=== PATIENT | female | born 1975 | race Caucasian/White ===

== ENCOUNTER 2016-11-08 04:51 | Inpatient (IN) | payer OTHER, MEDICAID, MEDICARE ==
[~2016-11-08] VITALS: Ht 162.6 cm; Wt 110.0 kg
[2016-11-08] VITALS (9 sets, daily range): BP systolic 117–174; BP diastolic 64–87; PULSE 77–137; RESP 16–20; TEMP 97.1–98.3; O2SAT 96–98
[~2016-11-08 04:51] MED LIST: ALBU0.086 INH; ALBU1.25 NEB; ALBU17I INH; ALBU8I INH; BUSP10TA8 PO; CETI10 PO; DUONI NEB
--- NOTE | 2016-11-08 05:14 | PD ---
HPI . Psychosis Chief Complaint: Psychiatric problem Time Seen by Provider: 05:04 Travel History International Travel<30 days: No Contact w/Intl Traveler<30days: No History of Present Illness HPI This patient is brought in by police under a [place] Act. This patient is acutely psychotic and is unable to give us any meaningful history. Her papers state that the devil is coming to kill her. She believes that today is Monday the that Richard is coming to kill her. The papers further states that her uncle brought her here 30 years ago and buried her in the backyard. PFSH Past Medical History Asthma: Yes Bipolar Disorder: Yes Depression: Yes Diminished Hearing: No Respiratory: Yes (ASTHMA) : 1 Para: 1 Tubal Ligation: Yes Social History Alcohol Use: Yes (occ) Tobacco Use: Yes (1 ppd) Substance Use: No Allergies-Medications (Allergen,Severity, Reaction): Coded Allergies: fexofenadine (Unverified Allergy, Mild, VOMITING, 11/08/16) Reported Meds & Prescriptions Reported Meds & Active Scripts Active Active Prescriptions or Reported Medications Unobtainable Review of Systems ROS Limitations: Psychotic Physical Exam Narrative GENERAL: Awake and alert. SKIN: Warm and dry with no rash or lesions. HEAD: Normocephalic/atraumatic. EYES: Pupils are equal. Extraocular movements are intact. NECK: Full range of motion with no apparent pain. CARDIOVASCULAR: Regular rhythm. RESPIRATORY: Nonlabored respirations. MUSCULOSKELETAL: Atraumatic. NEUROLOGICAL: Nonfocal. PSYCHIATRIC: This patient is very boisterous. She has flight of ideas. She is delusional. She appears to be responding to internal stimuli. Data Data Last Documented VS Vital Signs Date Time Temp Pulse Resp B/P (MAP) Pulse Ox O2 Delivery O2 Flow Rate FiO2 11/08/16 06:52 85 20 96 Room Air 11/08/16 05:04 97.3 174/87 (116) Orders Orders Olanzapine Inj (Zyprexa Inj) (11/08/16 05:15) Diphenhydramine Inj (Benadryl Inj) (11/08/16 05:15) Lorazepam Inj (Ativan Inj) (11/08/16 05:15) Complete Blood Count With Diff (11/08/16 05:14) Comprehensive Metabolic Panel (11/08/16 05:14) Psych Screen (11/08/16 05:14) Drug Screen, Random Urine (11/08/16 05:14) Alcohol (Ethanol) (11/08/16 05:14) Urinalysis - C+S If Indicated (11/08/16 06:22) Lactic Acid (11/08/16 06:22) Chest, Pa & Lat (11/08/16 ) Ct Brain W/O Iv Contrast(Rout) (11/08/16 06:22) Labs Laboratory Tests Test 11/08/16 05:22 11/08/16 06:35 White Blood Count 19.8 TH/MM3 Red Blood Count 4.58 MIL/MM3 Hemoglobin 13.6 GM/DL Hematocrit 40.0 % Mean Corpuscular Volume 87.4 FL Mean Corpuscular Hemoglobin 29.6 PG Mean Corpuscular Hemoglobin Concent 33.8 % Red Cell Distribution Width 12.8 % Platelet Count 435 TH/MM3 Mean Platelet Volume 7.8 FL Neutrophils (%) (Auto) 58.1 % Lymphocytes (%) (Auto) 27.6 % Monocytes (%) (Auto) 8.5 % Eosinophils (%) (Auto) 5.3 % Basophils (%) (Auto) 0.5 % Neutrophils # (Auto) 11.5 TH/MM3 Lymphocytes # (Auto) 5.5 TH/MM3 Monocytes # (Auto) 1.7 TH/MM3 Eosinophils # (Auto) 1.1 TH/MM3 Basophils # (Auto) 0.1 TH/MM3 CBC Comment AUTO DIFF Differential Total Cells Counted 100 Neutrophils % (Manual) 59 % Band Neutrophils % 2 % Lymphocytes % 19 % Monocytes % 9 % Eosinophils % 11 % Neutrophils # (Manual) 12.1 TH/MM3 Differential Comment FINAL DIFF MANUAL Platelet Estimate HIGH Platelet Morphology Comment NORMAL Red Cell Morphology Comment NORMAL Blood Urea Nitrogen 12 MG/DL Creatinine 1.00 MG/DL Random Glucose 162 MG/DL Total Protein 8.2 GM/DL Albumin 4.0 GM/DL Calcium Level 8.5 MG/DL Alkaline Phosphatase 131 U/L Aspartate Amino Transf (AST/SGOT) 14 U/L Alanine Aminotransferase (ALT/SGPT) 18 U/L Total Bilirubin 0.2 MG/DL Sodium Level 139 MEQ/L Potassium Level 3.1 MEQ/L Chloride Level 107 MEQ/L Carbon Dioxide Level 21.0 MEQ/L Anion Gap 11 MEQ/L Estimat Glomerular Filtration Rate 61 ML/MIN Ethyl Alcohol Level LESS THAN 3 MG/DL MDM Medical Decision Making Medical Screen Exam Complete: Yes Emergency Medical Condition: Yes Medical Record Reviewed: Yes (this patient has never been seen here for psychiatric issues.) Differential Diagnosis Differential diagnosis of psychosis includes but is not limited to schizophrenia , schizoaffective disorder, bipolar disorder, intoxication, substance abuse, dementia Narrative Course This patient presents acutely psychotic. CBC & BMP Diagram 11/08/16 05:22 Total Protein 8.2, Albumin 4.0, Calcium Level 8.5, Alkaline Phosphatase 131 H, Aspartate Amino Transf (AST/SGOT) 14 L, Alanine Aminotransferase (ALT/SGPT) 18, Total Bilirubin 0.2 Because of the elevated white blood count, further studies have been ordered. Her care is being turned over to the oncoming provider pending the results of the studies. Diagnosis Primary Impression: Acute psychosis Additional Impression: Leukocytosis Qualified Codes: D72.829 - Elevated white blood cell count, unspecified Scripts Unable to Obtain Active Prescriptions or Reported Meds Wanda Jones MD Nov 08, 2016 05:14
[2016-11-08] MEDS ORDERED: LORazepam 2 MG/ML VIAL IM ONE (05:15)
[2016-11-08] MEDS ORDERED: diphenhydrAMINE HCL 50 MG/ML VIAL IM ONE (05:15)
[2016-11-08] MEDS ORDERED: OLANZapine IM 10 MG VIAL IM ONE (05:15)
[2016-11-08 05:34] LABS: AUTOMATED NEUTROPHIL # 11.5 TH/MM3 (1.8-7.7); BASOPHIL # 0.1 TH/MM3 (0-0.2); BASOPHIL % 0.5 % (0.0-2.0); EOSINOPHIL # 1.1 TH/MM3 (0-0.4); EOSINOPHIL % 5.3 % (0.0-4.0); LYMPH % 27.6 % (9.0-44.0); LYMPHOCYTE # 5.5 TH/MM3 (1.0-4.8); MEAN CELL VOLUME 87.4 FL (80.0-100.0); MEAN CORPUSCULAR HEMOGLOBIN 29.6 PG (27.0-34.0); MEAN CORPUSCULAR HGB CONC 33.8 % (32.0-36.0); MONO % 8.5 % (0.0-8.0); NEUT % 58.1 % (16.0-70.0); PLATELET COUNT 435 TH/MM3 (150-450); RED BLOOD COUNT 4.58 MIL/MM3 (4.00-5.30); RED CELL DISTRIBUTION WIDTH 12.8 % (11.6-17.2); WHITE BLOOD COUNT 19.8 TH/MM3 (4.0-11.0)
[2016-11-08 05:42] LABS: HEMO FLAGS AUTO DIFF
[2016-11-08 06:04] LABS: ALT (GPT) 18 U/L (10-53); ANION GAP 11 MEQ/L (5-15); AST (GOT) 14 U/L (15-37); BLOOD UREA NITROGEN 12 MG/DL (7-18); CHLORIDE 107 MEQ/L (98-107); GLOMERULAR FILTRATION RATE 61 ML/MIN (>89); POTASSIUM 3.1 MEQ/L (3.5-5.1); SODIUM (NA) 139 MEQ/L (136-145)
[2016-11-08 06:05] LABS: ALCOHOL LESS THAN 3 MG/DL (0-5); ALKALINE PHOSPHATASE 131 U/L (45-117); TOTAL BILIRUBIN ADULT 0.2 MG/DL (0.2-1.0)
[2016-11-08 06:13] LABS: BANDS 2 % (0-6); EOSINOPHILS 11 % (0-4); NEUTROPHIL # MANUAL DIFF 12.1 TH/MM3 (1.8-7.7); POLYS (SEG NEUTROPHILS) 59 % (16-70); WBC DIFF SAMPLE 100
[2016-11-08 06:14] LABS: PLATELET ESTIMATE SMEAR HIGH (NORMAL); PLATELET MORPHOLOGY NORMAL (NORMAL); SCAN/DIFF FINAL DIFF MANUAL
--- NOTE | 2016-11-08 06:56 | RADRPT ---
EXAM DATE/TIME: 11/08/2016 06:38 [facility] COMPARISON: No previous studies available for comparison. INDICATIONS : Fever. MEDICAL HISTORY : None. SURGICAL HISTORY : None. ENCOUNTER: Initial ACUITY: 1 day PAIN SCORE: 0/10 LOCATION: Bilateral chest FINDINGS: Mild haziness seen of the right upper lobe suggesting early or mild pneumonia in the proper clinical setting. Lungs otherwise appear reasonably clear. No pleural effusion. No pneumothorax. Normal heart size. CONCLUSION: Possible early or mild right upper lobe pneumonia. Ovi Barragan MD on November 08, 2016 at 6:54 Board Certified Radiologist. This report was verified electronically.
--- NOTE | 2016-11-08 06:59 | RADRPT ---
EXAM DATE/TIME: 11/08/2016 06:44 [facility] COMPARISON: No previous studies available for comparison. INDICATIONS : Altered mental status. RADIATION DOSE: 31.39 CTDIvol (mGy) MEDICAL HISTORY : Asthma. SURGICAL HISTORY : Tubal ligation. Hysterectomy. ENCOUNTER: Initial ACUITY: 1 day PAIN SCALE: 0/10 LOCATION: cranial TECHNIQUE: Multiple contiguous axial images were obtained of the head. Using automated exposure control and adj ustment of the mA and/or kV according to patient size, radiation dose was kept as low as reasonably a chievable to obtain optimal diagnostic quality images. DICOM format image data is available electro nically for review and comparison. FINDINGS: CEREBRUM: The ventricles are normal for age. No evidence of midline shift, mass lesion, hemorrhage or acute in farction. No extra-axial fluid collections are seen. POSTERIOR FOSSA: The cerebellum and brainstem are intact. The 4th ventricle is midline. The cerebellopontine angle i s unremarkable. EXTRACRANIAL: Mucoperiosteal thickening seen of the visualized paranasal sinuses. There are fluid levels in the sph enoid air cells. Mastoid air cells are clear. SKULL: The calvaria is intact. No evidence of skull fracture. CONCLUSION: No acute intracranial abnormality demonstrated. Sinus disease. Ovi Barragan MD on November 08, 2016 at 6:56 Board Certified Radiologist. This report was verified electronically.
[2016-11-08] MEDS ORDERED: SODIUM CHLOR 0.9% 1000 ML INJ 1,000 ML IV ONE ×2 (07:15)
[2016-11-08] MEDS ORDERED: POTASSIUM CHLOR 20 MEQ PREMIX 100 ML IV ONE (07:45)
[2016-11-08] MEDS ORDERED: PIPERACIL-TAZO 4.5 GM PREMIX 100 ML IV ONE (07:45)
[2016-11-08] MEDS ORDERED: VANCOMYCIN INJ 1,000 MG in SODIUM CHLOR 0.9% 250 ML INJ 250 ML IV ONE (07:45)
--- NOTE | 2016-11-08 08:02 | PD ---
Physical Exam Date Seen by Provider: Nov 08, 2016 Time Seen by Provider: 07:53 Narrative 41-year-old female was brought in for psych eval/medical clearance. Patient was psychotic as per the previous ER physician. Please review her notes for history and physical details. Patient needed to be chemically restrained. Sign out was to follow-up on labs since patient is not medically cleared yet. She has leukocytosis and lactic acidosis. Head CT and x-ray chest is negative. Awaiting for a UA. Patient is sedated and I have asked the nurse to straight catheter the patient to get a UA. I have ordered 2 L of IV fluid bolus as well as IV Zosyn and vancomycin. Patient has hypokalemia and I have ordered for replacement IV. Patient obviously is not medically cleared. I'm waiting for the hospitalist to call back for admission. Data Data Last Documented VS Vital Signs Date Time Temp Pulse Resp B/P (MAP) Pulse Ox O2 Delivery O2 Flow Rate FiO2 11/08/16 07:35 81 18 121/77 (92) 96 Room Air Orders Orders Olanzapine Inj (Zyprexa Inj) (11/08/16 05:15) Diphenhydramine Inj (Benadryl Inj) (11/08/16 05:15) Lorazepam Inj (Ativan Inj) (11/08/16 05:15) Complete Blood Count With Diff (11/08/16 05:14) Comprehensive Metabolic Panel (11/08/16 05:14) Psych Screen (11/08/16 05:14) Drug Screen, Random Urine (11/08/16 05:14) Alcohol (Ethanol) (11/08/16 05:14) Urinalysis - C+S If Indicated (11/08/16 06:22) Lactic Acid (11/08/16 06:22) Chest, Pa & Lat (11/08/16 ) Ct Brain W/O Iv Contrast(Rout) (11/08/16 06:22) Sodium Chlor 0.9% 1000 Ml Inj (Ns 1000 M (11/08/16 07:15) Sodium Chlor 0.9% 1000 Ml Inj (Ns 1000 M (11/08/16 07:15) Potassium Chlor 20 Meq Premix (Kcl 20 Me (11/08/16 07:45) Piperacil-Tazo 4.5 Gm Premix (Zosyn 4.5 (11/08/16 07:45) Vancomycin Inj (Vancomycin Inj) (11/08/16 07:45) ^ Straight Catheter (11/08/16 07:43) Blood Culture (11/08/16 07:43) Complete Blood Count With Diff (11/09/16 06:00) Basic Metabolic Panel (Bmp) (11/09/16 06:00) Vital Signs (Adult) MAXINE.Q4H (11/08/16 08:07) Acetaminophen (Tylenol) (11/08/16 08:15) Ondansetron Inj (Zofran Inj) (11/08/16 08:15) Sodium Chlor 0.9% 1000 Ml Inj (Ns 1000 M (11/08/16 08:15) Resp Oxygen Kai C Titrat 1-4 L (11/08/16 ) Admit Order (Ed Use Only) (11/08/16 08:11) Labs Laboratory Tests Test 11/08/16 05:22 11/08/16 06:35 White Blood Count 19.8 TH/MM3 Red Blood Count 4.58 MIL/MM3 Hemoglobin 13.6 GM/DL Hematocrit 40.0 % Mean Corpuscular Volume 87.4 FL Mean Corpuscular Hemoglobin 29.6 PG Mean Corpuscular Hemoglobin Concent 33.8 % Red Cell Distribution Width 12.8 % Platelet Count 435 TH/MM3 Mean Platelet Volume 7.8 FL Neutrophils (%) (Auto) 58.1 % Lymphocytes (%) (Auto) 27.6 % Monocytes (%) (Auto) 8.5 % Eosinophils (%) (Auto) 5.3 % Basophils (%) (Auto) 0.5 % Neutrophils # (Auto) 11.5 TH/MM3 Lymphocytes # (Auto) 5.5 TH/MM3 Monocytes # (Auto) 1.7 TH/MM3 Eosinophils # (Auto) 1.1 TH/MM3 Basophils # (Auto) 0.1 TH/MM3 CBC Comment AUTO DIFF Differential Total Cells Counted 100 Neutrophils % (Manual) 59 % Band Neutrophils % 2 % Lymphocytes % 19 % Monocytes % 9 % Eosinophils % 11 % Neutrophils # (Manual) 12.1 TH/MM3 Differential Comment FINAL DIFF MANUAL Platelet Estimate HIGH Platelet Morphology Comment NORMAL Red Cell Morphology Comment NORMAL Blood Urea Nitrogen 12 MG/DL Creatinine 1.00 MG/DL Random Glucose 162 MG/DL Total Protein 8.2 GM/DL Albumin 4.0 GM/DL Calcium Level 8.5 MG/DL Alkaline Phosphatase 131 U/L Aspartate Amino Transf (AST/SGOT) 14 U/L Alanine Aminotransferase (ALT/SGPT) 18 U/L Total Bilirubin 0.2 MG/DL Sodium Level 139 MEQ/L Potassium Level 3.1 MEQ/L Chloride Level 107 MEQ/L Carbon Dioxide Level 21.0 MEQ/L Anion Gap 11 MEQ/L Estimat Glomerular Filtration Rate 61 ML/MIN Ethyl Alcohol Level LESS THAN 3 MG/DL Lactic Acid Level 2.4 mmol/L MDM Supervised Visit with QUETA: No Critical Care Narrative Aggregate critical care time was 30 minutes. Time to perform other separately billable procedures was not included in the critical care time. My time did not include minutes spent treating any other patients simultaneously or on activities that did not directly contribute to the patient's treatment. The services I provided to this patient were to treat and/or prevent clinically significant deterioration that could result in: Sepsis, sepsis protocol, hypokalemia I provided critical care services requiring my management, as noted below: Chart data review, documentation time, medication orders and management, vital sign assessments/reviewing monitor data, ordering and reviewing lab tests, ordering and interpreting/reviewing x-rays and diagnostic studies, care of the patient and discussion of the patient with the admitting physicians. Diagnosis Primary Impression: Acute psychosis Additional Impressions: Leukocytosis Qualified Codes: D72.829 - Elevated white blood cell count, unspecified Sepsis Qualified Codes: A41.9 - Sepsis, unspecified organism Eosinophilia Hypokalemia Pneumonia Qualified Codes: J18.1 - Lobar pneumonia, unspecified organism Admitting Information Admitting Physician Requests: Admit Scripts Amoxicillin-Clavulanate (Augmentin) 875-125 Mg Tab 1 TAB PO BID for Infection for 5 Days, #10 TAB 0 Refills Prov: Juan Carlos Wick MD 11/09/16 Padmini Noble MD Nov 08, 2016 08:02
[2016-11-08] MEDS ORDERED: ONDANSETRON HCL 4 MG/2 ML VIAL IV PUSH PRN (08:15)
[2016-11-08] MEDS ORDERED: ACETAMINOPHEN 325 MG TAB PO PRN (08:15)
[2016-11-08 09:10] LABS: BLOOD, URINE TRACE (NEG); GLUCOSE,URINE NEG (NEG); KETONE, URINE NEG (NEG); NITRITE,URINE NEG (NEG); PH, URINE 5.5 (5.0-8.5); SQUAMOUS EPITHELIAL CELL URINE <1 /hpf (0-5); URINE COLOR LIGHT-YELLOW (YELLW/STRAW)
[2016-11-08 09:11] LABS: COMMENT (UR) CULT NOT INDICATED; CULTURE IF INDICATED CULT NOT INDICATED
--- NOTE | 2016-11-08 09:51 | HHI.HP ---
[facility] No Primary Care Physician Admission Diagnosis sepsis, pneumonia, psychosis Diagnoses: (1) Sepsis Diagnosis: Principal (2) Pneumonia Diagnosis: Principal (3) Acute psychosis Diagnosis: Principal Chief Complaint: ' I don't know why I'm here.' Travel History International Travel<30 Days: No Contact w/Intl Traveler <30 Da: No Traveled to Known Affected Are: No Sepsis Criteria SIRS Criteria (2 or more): Heart rate over 90, WBC > 20830, < 4000 or > 10% bands Sepsis Criteria (SIRS+source): Infect source susp/known Criteria Outcome: Meets sepsis criteria History of Present Illness patient is a 41 y/o female with history of bipolar disorder who was brought to ER with hallucinations. per the police report she was found psychotic stating that she thought that the devil was trying to kill her. she says that she's hearing voices asking her to kill herself. she denies any cough, sob, chest pain. no report of fever or chills. she's not a good historian and most of the information was obtained through the ER documents. Review of Systems ROS Limitations: Poor Historian Psychiatric: COMPLAINS OF: Hallucinations Past Family Social History Past Medical History bipolar disorder Past Surgical History tubal ligation Reported Medications not known Allergies: Coded Allergies: fexofenadine (Unverified Allergy, Mild, VOMITING, 11/08/16) Active Ordered Medications Current Medications Olanzapine (ZyPREXA INJ) 10 mg ONCE ONCE IM Last administered on 11/08/16 05: 22; Start 11/08/16 at 05:15; Stop 11/08/16 at 05:16; Status DC Diphenhydramine HCl (Benadryl Inj) 50 mg ONCE ONCE IM Last administered on 05:22; Start 11/08/16 at 05:15; Stop 11/08/16 at 05:16; Status DC Lorazepam (Ativan Inj) 2 mg ONCE ONCE IM Last administered on 11/08/16 05:21 ; Start 11/08/16 at 05:15; Stop 11/08/16 at 05:16; Status DC Sodium Chloride 1,000 ml @ 999 mls/hr BOLUS ONCE IV Last administered on 11/08 08:16; Start 11/08/16 at 07:15; Stop 11/08/16 at 08:15; Status DC Sodium Chloride 1,000 ml @ 999 mls/hr BOLUS ONCE IV Last administered on 11/08 08:17; Start 11/08/16 at 07:15; Stop 11/08/16 at 08:15; Status DC Potassium Chloride 100 ml @ 50 mls/hr ONCE ONCE IV ; Start 11/08/16 at 07:45; Stop 11/08/16 at 09:44; Status DC Piperacillin Sod/ Tazobactam Sod 100 ml @ 200 mls/hr ONCE ONCE IV Last administered on 11/08/16 08:23; Start 11/08/16 at 07:45; Stop 11/08/16 at 08:14 ; Status DC Vancomycin HCl 1000 mg/Sodium Chloride 250 ml @ 250 mls/hr ONCE ONCE IV ; Start 11/08/16 at 07:45; Stop 11/08/16 at 08:44; Status DC Acetaminophen (Tylenol) 650 mg Q4H PRN PO FEVER; Start 11/08/16 at 08:15 Ondansetron HCl (Zofran Inj) 4 mg Q8HR PRN IV PUSH NAUSEA; Start 11/08/16 at 08 :15 Sodium Chloride 1,000 ml @ 100 mls/hr Q10H IV ; Start 11/08/16 at 08:15 Social History smokes a pack a day- doesn't drink but uses weed. Physical Exam Vital Signs Vital Signs Date Time Temp Pulse Resp B/P (MAP) Pulse Ox O2 Delivery O2 Flow Rate FiO2 11/08/16 09:05 98.3 77 16 117/83 (94) 97 Room Air 11/08/16 08:49 97 21 11/08/16 07:35 81 18 121/77 (92) 96 Room Air 11/08/16 06:52 85 20 96 Room Air 11/08/16 05:04 97.3 137 20 174/87 (116) 97 Physical Exam GENERAL: This is a well-nourished, well-developed patient, in no apparent distress. SKIN: No rashes, ecchymoses or lesions. Cool and dry. HEAD: Atraumatic. Normocephalic. No temporal or scalp tenderness. EYES: Pupils equal round and reactive. Extraocular motions intact. No scleral icterus. No injection or drainage. ENT: Nose without bleeding, purulent drainage or septal hematoma. Throat without erythema, tonsillar hypertrophy or exudate. Uvula midline. Airway patent. NECK: Trachea midline. No JVD or lymphadenopathy. Supple, nontender, no meningeal signs. CARDIOVASCULAR: Regular rate and rhythm without murmurs, gallops, or rubs. RESPIRATORY: Clear to auscultation. Breath sounds equal bilaterally. No wheezes , rales, or rhonchi. GASTROINTESTINAL: Abdomen soft, non-tender, nondistended. No hepato-splenomegaly , or palpable masses. No guarding. MUSCULOSKELETAL: Extremities without clubbing, cyanosis, or edema. No joint tenderness, effusion, or edema noted. No calf tenderness. Negative Homans sign bilaterally. NEUROLOGICAL: Awake and alert but with hallucinations. Laboratory Laboratory Tests Test 11/08/16 05:22 11/08/16 06:35 11/08/16 08:35 White Blood Count 19.8 Red Blood Count 4.58 Hemoglobin 13.6 Hematocrit 40.0 Mean Corpuscular Volume 87.4 Mean Corpuscular Hemoglobin 29.6 Mean Corpuscular Hemoglobin Concent 33.8 Red Cell Distribution Width 12.8 Platelet Count 435 Mean Platelet Volume 7.8 Neutrophils (%) (Auto) 58.1 Lymphocytes (%) (Auto) 27.6 Monocytes (%) (Auto) 8.5 Eosinophils (%) (Auto) 5.3 Basophils (%) (Auto) 0.5 Neutrophils # (Auto) 11.5 Lymphocytes # (Auto) 5.5 Monocytes # (Auto) 1.7 Eosinophils # (Auto) 1.1 Basophils # (Auto) 0.1 CBC Comment AUTO DIFF Differential Total Cells Counted 100 Neutrophils % (Manual) 59 Band Neutrophils % 2 Lymphocytes % 19 Monocytes % 9 Eosinophils % 11 Neutrophils # (Manual) 12.1 Differential Comment FINAL DIFF MANUAL Platelet Estimate HIGH Platelet Morphology Comment NORMAL Red Cell Morphology Comment NORMAL Blood Urea Nitrogen 12 Creatinine 1.00 Random Glucose 162 Total Protein 8.2 Albumin 4.0 Calcium Level 8.5 Alkaline Phosphatase 131 Aspartate Amino Transf (AST/SGOT) 14 Alanine Aminotransferase (ALT/SGPT) 18 Total Bilirubin 0.2 Sodium Level 139 Potassium Level 3.1 Chloride Level 107 Carbon Dioxide Level 21.0 Anion Gap 11 Estimat Glomerular Filtration Rate 61 Ethyl Alcohol Level LESS THAN 3 Lactic Acid Level 2.4 Urine Color LIGHT-YELLOW Urine Turbidity CLEAR Urine pH 5.5 Urine Specific [place] 1.005 Urine Protein NEG Urine Glucose (UA) NEG Urine Ketones NEG Urine Occult Blood TRACE Urine Nitrite NEG Urine Bilirubin NEG Urine Urobilinogen LESS THAN 2.0 Urine Leukocyte Esterase NEG Urine RBC 1 Urine WBC 1 Urine Squamous Epithelial Cells <1 Microscopic Urinalysis Comment CULT NOT INDICATED Urine Opiates Screen NEG Urine Barbiturates Screen NEG Urine Amphetamines Screen NEG Urine Benzodiazepines Screen NEG Urine Cocaine Screen NEG Urine Cannabinoids Screen POS Date/Time Source Procedure Growth Status 11/08/16 08:30 Blood Peripheral Aerobic Blood Culture Pending Received 11/08/16 08:30 Blood Peripheral Anaerobic Blood Culture Pending Received Result Diagram: 11/08/16 0522 11/08/16521 Caprini VTE Risk Assessment Caprini VTE Risk Assessment: Mod/High Risk (score >= 2) Caprini Risk Assessment Model Point Value = 1 Point Value = 2 Point Value = 3 Point Value = 5 Age 41-60 Minor surgery BMI > 25 kg/m2 Swollen legs Varicose veins or History of unexplained or recurrent spontaneous Oral contraceptives or hormone replacement Sepsis (< 1 month) Serious lung disease, including pneumonia (< 1 month) Abnormal pulmonary function Acute myocardial infarction Congestive heart failure (< 1 month) History of inflammatory bowel disease Medical patient at bed rest Age 61-74 Arthroscopic surgery Major open surgery (> 45 min) Laparoscopic surgery (> 45 min) Malignancy Confined to bed (> 72 hours) Immobilizing plaster cast Central venous access Age >= 75 History of VTE Family history of VTE Factor V Leiden Prothrombin [id number] Lupus anticoagulant Anticardiolipin antibodies Elevated serum homocysteine Heparin-induced thrombocytopenia Other congenital or acquired thrombophilia Stroke (< 1 month) Elective arthroplasty Hip, pelvis, or leg fracture Acute spinal cord injury (< 1 month) Prophylaxis Regimen Total Risk Factor Score Risk Level Prophylaxis Regimen 0-1 Low Early ambulation 2 Moderate Order ONE of the following: *Sequential Compression Device (SCD) *Heparin 5000 units SQ BID 3-4 Higher Order ONE of the following medications: *Heparin 5000 units SQ TID *Enoxaparin/Lovenox 40 mg SQ daily (WT < 150 kg, CrCl > 30 mL/min) *Enoxaparin/Lovenox 30 mg SQ daily (WT < 150 kg, CrCl > 10-29 mL/min) *Enoxaparin/Lovenox 30 mg SQ BID (WT < 150 kg, CrCl > 30 mL/min) AND/OR *Sequential Compression Device (SCD) 5 or more Highest Order ONE of the following medications: *Heparin 5000 units SQ TID (Preferred with Epidurals) *Enoxaparin/Lovenox 40 mg SQ daily (WT < 150 kg, CrCl > 30 mL/min) *Enoxaparin/Lovenox 30 mg SQ daily (WT < 150 kg, CrCl > 10-29 mL/min) *Enoxaparin/Lovenox 30 mg SQ BID (WT < 150 kg, CrCl > 30 mL/min) AND *Sequential Compression Device (SCD) Assessment and Plan Assessment and Plan A/P - bipolar disorder with psychosis will consult psych. -sepsis due to pneumonia continue with broad spectrum IV antibiotics- neb treatment and antipyretics as needed. follow the blood cultures. -hypokalemia; replaced. -DVT prophylaxis with subq lovenox. Discussed Condition With ER physician and the patient. Physician Certification 2 Midnight Certification Type: Admission for Inpatient Services Order for Inpatient Services The services are ordered in accordance with Medicare regulations or non- Medicare payer requirements, as applicable. In the case of services not specified as inpatient-only, they are appropriately provided as inpatient services in accordance with the 2-midnight benchmark. Estimated LOS (days): 2 days is the estimated time the patient will need to remain in the hospital, assuming treatment plan goals are met and no additional complications. Post-Hospital Plan: Not yet determined Physician Certification 2 Midnight Certification Type: Admission for Inpatient Services Order for Inpatient Services The services are ordered in accordance with Medicare regulations or non- Medicare payer requirements, as applicable. In the case of services not specified as inpatient-only, they are appropriately provided as inpatient services in accordance with the 2-midnight benchmark. Estimated LOS (days): 2 days is the estimated time the patient will need to remain in the hospital, assuming treatment plan goals are met and no additional complications. Post-Hospital Plan: Not yet determined Problem Qualifiers (1) Sepsis: Qualified Codes: A41.9 - Sepsis, unspecified organism (2) Pneumonia: Qualified Codes: J18.1 - Lobar pneumonia, unspecified organism Minouei,Mohammadreza MD Nov 08, 2016 09:51
[2016-11-08] MEDS: SODIUM CHLOR 0.9% 1000 ML INJ 1,000 ML IV SCH (10:30)
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
[2016-11-08] MEDS ORDERED: HALOPERIDOL LACTATE 5 MG/ML AMP IM PRN (15:30)
[2016-11-08] MEDS: ARIPiprazole 5 MG TAB PO SCH (17:01)
[2016-11-08] MEDS: PIPERACIL-TAZO 3.375 GM PREMIX 50 ML IV SCH ×2 (17:01→21:01)
[2016-11-08] MEDS: ENOXAPARIN SODIUM 40 MG/0.4 ML SYRINGE SQ SCH (17:11)
[2016-11-08] MEDS: RESP: ALBUTEROL 2.5 MG/IPRATROPIUM 0.5 MG NEB (PRN) NEB (23:53)
[2016-11-09] VITALS: BP 124/74; PULSE 81; RESP 18; TEMP 98.3; O2SAT 97
[2016-11-09] MEDS: PIPERACIL-TAZO 3.375 GM PREMIX 50 ML IV SCH ×2 (03:20→07:55)
[2016-11-09] MEDS: RESP: ALBUTEROL 2.5 MG/IPRATROPIUM 0.5 MG NEB (PRN) NEB ×2 (03:54→10:11)
[2016-11-09] MEDS: SODIUM CHLOR 0.9% 1000 ML INJ 1,000 ML IV SCH (06:16)
[2016-11-09 07:32] LABS: AUTOMATED NEUTROPHIL # 5.1 TH/MM3 (1.8-7.7); BASOPHIL # 0.1 TH/MM3 (0-0.2); BASOPHIL % 0.6 % (0.0-2.0); EOSINOPHIL # 0.8 TH/MM3 (0-0.4); EOSINOPHIL % 8.4 % (0.0-4.0); HEMATOCRIT 34.2 % (35.0-46.0); HEMO FLAGS DIFF FINAL; LYMPH % 30.9 % (9.0-44.0); LYMPHOCYTE # 3.1 TH/MM3 (1.0-4.8); MEAN CELL VOLUME 89.3 FL (80.0-100.0); MEAN CORPUSCULAR HEMOGLOBIN 30.1 PG (27.0-34.0); MEAN CORPUSCULAR HGB CONC 33.7 % (32.0-36.0); MONO % 8.6 % (0.0-8.0); NEUT % 51.5 % (16.0-70.0); PLATELET COUNT 276 TH/MM3 (150-450); RED BLOOD COUNT 3.83 MIL/MM3 (4.00-5.30); RED CELL DISTRIBUTION WIDTH 13.4 % (11.6-17.2)
[2016-11-09] MEDS: ARIPiprazole 5 MG TAB PO SCH (07:55)
[2016-11-09 07:58] LABS: BICARBONATE 23.7 MEQ/L (21.0-32.0); POTASSIUM 3.3 MEQ/L (3.5-5.1)
[2016-11-09 08:00] VITALS: BP 123/66; PULSE 75; RESP 17; TEMP 96.7; O2SAT 97
[2016-11-09] MEDS ORDERED: ALBU0.08 NEB (09:20)
[2016-11-09] MEDS ORDERED: ATOR20TA15 PO (09:20)
[2016-11-09] MEDS ORDERED: CETI10 PO (09:20)
[2016-11-09] MEDS ORDERED: OMEP20TA PO (09:20)
[2016-11-09] MEDS ORDERED: ZOLO100T PO (09:36)
[2016-11-09 10:11] VITALS: O2SAT 94
--- NOTE | 2016-11-09 10:27 | EKG ---
Date Performed: 11/08/2016 Time Performed: 16:31:16 PTAGE: 41 years EKG: Sinus rhythm NORMAL ECG NO PREVIOUS TRACING DOCTOR: Liu Patterson Interpretating Date/Time 11/09/2016 10:27:05
--- NOTE | 2016-11-09 10:45 | HHI.PR ---
Subjective Remarks looks and feels comfortable. no fever or sob. d/w the RN and no acute issues over night. Objective Vitals Vital Signs Date Time Temp Pulse Resp B/P (MAP) Pulse Ox O2 Delivery O2 Flow Rate FiO2 11/09/16 10:11 94 21 11/09/16 08:00 96.7 75 17 123/66 (85) 97 11/09/16 00:00 98.3 81 18 124/74 (91) 97 11/08/16 23:58 98 11/08/16 20:00 97.6 83 18 122/64 (83) 97 11/08/16 16:00 98.1 86 18 120/73 (89) 97 11/08/16 12:00 97.1 88 18 133/78 (96) 96 11/08/16 11:45 I/O 11/08/16 11/08/16 11/08/16 11/09/16 11/09/16 11/09/16 07:00 15:00 23:00 07:00 15:00 23:00 Intake Total 2690 ml 1275 ml 100 ml Output Total 1250 ml Balance 2690 ml 1275 ml -1150 ml Intake Oral 240 ml 320 ml IV Total 2450 ml 955 ml 100 ml Output Urine Total 1250 ml # Voids 2 1 # Bowel Movements 0 Result Diagram: 11/09/1615 11/09/1615 Imaging Last Impressions Head CT 11/08/16621 Signed Impressions: Service Date/Time: Tuesday, November 08, 2016 06:44 - CONCLUSION: No acute intracranial abnormality demonstrated. Sinus disease. Ovi Barragan MD Chest X-Ray 11/08/16 0000 Signed Impressions: Service Date/Time: Tuesday, November 08, 2016 06:38 - CONCLUSION: Possible early or mild right upper lobe pneumonia. Ovi Barragan MD Objective Remarks GENERAL: This is a well-nourished, well-developed patient, in no apparent distress. CARDIOVASCULAR: Regular rate and regular rhythm without murmurs, gallops, or rubs. RESPIRATORY: Clear to auscultation. Breath sounds equal bilaterally. No wheezes , rales, or rhonchi. GASTROINTESTINAL: Abdomen soft, non-tender, nondistended. Normal, active bowel sounds MUSCULOSKELETAL: Extremities without clubbing, cyanosis, or edema. NEURO: Alert & Oriented x4 to person, place, time, situation. Moves all ext x4 Procedures none Medications and IVs Current Medications Olanzapine (ZyPREXA INJ) 10 mg ONCE ONCE IM Last administered on 11/08/16 05: 22; Start 11/08/16 at 05:15; Stop 11/08/16 at 05:16; Status DC Diphenhydramine HCl (Benadryl Inj) 50 mg ONCE ONCE IM Last administered on 05:22; Start 11/08/16 at 05:15; Stop 11/08/16 at 05:16; Status DC Lorazepam (Ativan Inj) 2 mg ONCE ONCE IM Last administered on 11/08/16 05:21 ; Start 11/08/16 at 05:15; Stop 11/08/16 at 05:16; Status DC Sodium Chloride 1,000 ml @ 999 mls/hr BOLUS ONCE IV Last administered on 11/08 08:16; Start 11/08/16 at 07:15; Stop 11/08/16 at 08:15; Status DC Sodium Chloride 1,000 ml @ 999 mls/hr BOLUS ONCE IV Last administered on 11/08 08:17; Start 11/08/16 at 07:15; Stop 11/08/16 at 08:15; Status DC Potassium Chloride 100 ml @ 50 mls/hr ONCE ONCE IV Last administered on 10:29; Start 11/08/16 at 07:45; Stop 11/08/16 at 09:44; Status DC Piperacillin Sod/ Tazobactam Sod 100 ml @ 200 mls/hr ONCE ONCE IV Last administered on 11/08/16 08:23; Start 11/08/16 at 07:45; Stop 11/08/16 at 08:14 ; Status DC Vancomycin HCl 1000 mg/Sodium Chloride 250 ml @ 250 mls/hr ONCE ONCE IV Last administered on 11/08/16 09:55; Start 11/08/16 at 07:45; Stop 11/08/16 at 08:44 ; Status DC Acetaminophen (Tylenol) 650 mg Q4H PRN PO FEVER; Start 11/08/16 at 08:15 Ondansetron HCl (Zofran Inj) 4 mg Q8HR PRN IV PUSH NAUSEA; Start 11/08/16 at 08 :15 Sodium Chloride 1,000 ml @ 100 mls/hr Q10H IV Last administered on 11/09/16 06:16; Start 11/08/16 at 08:15 Piperacillin Sod/ Tazobactam Sod 50 ml @ 100 mls/hr Q6H IV Last administered on 11/09/16 07:55; Start 11/08/16 at 14:00 Albuterol/ Ipratropium (Duoneb Neb) 1 ampule Q4HR NEB PRN NEB SHORTNESS OF BREATH Last administered on 11/09/16 10:11; Start 11/08/16 at 09:45 Enoxaparin Sodium (Lovenox Inj) 40 mg Q24H SQ Last administered on 11/08/16 17 :11; Start 11/08/16 at 11:00 Aripiprazole (Abilify) 5 mg DAILY PO Last administered on 11/09/16 07:55; Start 11/08/16 at 16:00 Haloperidol Lactate (Haldol Inj) 5 mg Q8HR PRN IM agitation/aggression; Start 11/08/16 at 15:30 A/P Assessment and Plan A/P - bipolar disorder with psychosis psych consult appreciated; plan to transfer to the psych unit. -sepsis due to pneumonia switch to po antibiotics- follow the cultures. -hypokalemia; replaced. -DVT prophylaxis with subq lovenox. Discharge Planning medically stable to dc to the psych unit. see med list. f/u; pcp and psych. d/w the patient and RN. Juan Carlos Wick MD Nov 09, 2016 10:45
[2016-11-09] MEDS ORDERED: AUGM875T3 PO (10:48)
[2016-11-09] MEDS ORDERED: ARIP1TAB11 PO (10:48)
--- NOTE | 2016-11-09 10:49 | HHI.DS ---
Discharge Summary Admission Date Nov 08, 2016 at 08:12 Discharge Date: Nov 09, 2016 Admitting Diagnosis sepsis, pneumonia, psychosis (1) Sepsis ICD Code: A41.9 - Sepsis, unspecified organism Diagnosis: Principal Status: Acute (2) Pneumonia ICD Code: J18.9 - Pneumonia, unspecified organism Diagnosis: Principal Status: Acute (3) Acute psychosis ICD Code: F23 - Brief psychotic disorder Diagnosis: Principal Status: Acute Procedures none Brief History - From Admission patient is a 41 y/o female with history of bipolar disorder who was brought to ER with hallucinations. per the police report she was found psychotic stating that she thought that the devil was trying to kill her. she says that she's hearing voices asking her to kill herself. she denies any cough, sob, chest pain. no report of fever or chills. she's not a good historian and most of the information was obtained through the ER documents. CBC/BMP: 11/09/16 0715 11/09/16 0715 Significant Findings Laboratory Tests Test 11/08/16 05:22 11/08/16 06:35 11/08/16 08:30 11/08/16 08:35 White Blood Count 19.8 TH/MM3 (4.0-11.0) Monocytes (%) (Auto) 8.5 % (0.0-8.0) Eosinophils (%) (Auto) 5.3 % (0.0-4.0) Neutrophils # (Auto) 11.5 TH/MM3 (1.8-7.7) Lymphocytes # (Auto) 5.5 TH/MM3 (1.0-4.8) Monocytes # (Auto) 1.7 TH/MM3 (0-0.9) Eosinophils # (Auto) 1.1 TH/MM3 (0-0.4) Monocytes % 9 % (0-8) Eosinophils % 11 % (0-4) Neutrophils # (Manual) 12.1 TH/MM3 (1.8-7.7) Platelet Estimate HIGH (NORMAL) Random Glucose 162 MG/DL (74-106) Alkaline Phosphatase 131 U/L (45-117) Aspartate Amino Transf (AST/SGOT) 14 U/L (15-37) Potassium Level 3.1 MEQ/L (3.5-5.1) Estimat Glomerular Filtration Rate 61 ML/MIN (>89) Lactic Acid Level 2.4 mmol/L (0.4-2.0) Urine Occult Blood TRACE (NEG) Urine Cannabinoids Screen POS (NEG) Test 11/09/16 07:15 Red Blood Count 3.83 MIL/MM3 (4.00-5.30) Hemoglobin 11.5 GM/DL (11.6-15.3) Hematocrit 34.2 % (35.0-46.0) Monocytes (%) (Auto) 8.6 % (0.0-8.0) Eosinophils (%) (Auto) 8.4 % (0.0-4.0) Eosinophils # (Auto) 0.8 TH/MM3 (0-0.4) Blood Urea Nitrogen 5 MG/DL (7-18) Calcium Level 8.1 MG/DL (8.5-10.1) Potassium Level 3.3 MEQ/L (3.5-5.1) Chloride Level 113 MEQ/L (98-107) Estimat Glomerular Filtration Rate 86 ML/MIN (>89) Imaging Last Impressions Head CT 11/08/16 0622 Signed Impressions: Service Date/Time: Tuesday, November 08, 2016 06:44 - CONCLUSION: No acute intracranial abnormality demonstrated. Sinus disease. Ovi Barragan MD Chest X-Ray 11/08/16 0000 Signed Impressions: Service Date/Time: Tuesday, November 08, 2016 06:38 - CONCLUSION: Possible early or mild right upper lobe pneumonia. Ovi Barragan MD PE at Discharge GENERAL: This is a well-nourished, well-developed patient, in no apparent distress. CARDIOVASCULAR: Regular rate and regular rhythm without murmurs, gallops, or rubs. RESPIRATORY: Clear to auscultation. Breath sounds equal bilaterally. No wheezes , rales, or rhonchi. GASTROINTESTINAL: Abdomen soft, non-tender, nondistended. Normal, active bowel sounds MUSCULOSKELETAL: Extremities without clubbing, cyanosis, or edema. NEURO: Alert & Oriented x4 to person, place, time, situation. Moves all ext x4 Hospital Course - bipolar disorder with psychosis psych consult appreciated; plan to transfer to the psych unit. -sepsis due to pneumonia switch to po antibiotics- follow the cultures. -hypokalemia; replaced. -DVT prophylaxis with subq lovenox. Pt Condition on Discharge: Stable Discharge Disposition: Disc to Psych Care Fac Discharge Time: <= 30 minutes Discharge Instructions DIET: Follow Instructions for: Heart Healthy Diet Activities you can perform: Regular-No Restrictions Follow up Referrals: PCP Follow-up Psychiatry Adult New Medications: Amoxicillin-Clavulanate (Augmentin) 875-125 Mg Tab 1 TAB PO BID for Infection for 5 Days, #10 TAB 0 Refills Aripiprazole (Aripiprazole) 5 Mg Tab 5 MG PO DAILY for psychosis for 30 Days, #30 TAB 0 Refills Continued Medications: Albuterol Neb (Albuterol Neb) 2.5 Mg/3 Ml Neb 2.5 MG NEB Q4HR NEB for Breathing Treatment, #60 NEBULE 0 Refills While awake Atorvastatin (Atorvastatin) 20 Mg Tab 20 MG PO HS for Cholesterol Management, #30 TAB 0 Refills Cetirizine (Cetirizine) 10 Mg Tab 10 MG PO DAILY PRN for ALLERGIES, TAB 0 Refills Omeprazole (Omeprazole) 20 Mg Tab 20 MG PO DAILY, #30 TAB 0 Refills Discontinued Medications: Sertraline (Zoloft) 100 Mg Tab 100 MG PO DAILY, #30 TAB 0 Refills Juan Carlos Wick MD Nov 09, 2016 10:49
[2016-11-09] MEDS ORDERED: POTASSIUM CHLORIDE 10 MEQ CONTROLLED RELEASE TAB PO ONE (11:00)
[2016-11-09] MEDS: ENOXAPARIN SODIUM 40 MG/0.4 ML SYRINGE SQ SCH (11:43)
[2016-11-09 12:00] VITALS: BP 99/52; PULSE 76; RESP 17; TEMP 97.2; O2SAT 98
--- NOTE | 2016-11-09 12:07 | HHI.PYPN ---
Subjective Remarks Patient was seen today for psychiatric reevaluation, patient is much calmer and cooperative. Patient states that she doesn't understand what happened to her, she says that for the last 2 days she has been seen "demons and people and believed that people were trying to kill me and hurt me'. Patient states that she had episodes like this in the past, but never so intense. Patient says that she was like "living in a dream". At this moment patient denies depressive symptoms, she denies anxiety, she denies suicidal and homicidal ideation, she denies visual and auditory hallucinations. Patient seems to be logical, coherent and relevant. No agitation, no aggressive behavior, no paranoia or delusions present at this moment. However, nursing charge patient has been disorganized on and off, yesterday very paranoid, but this morning better. Review of Systems Other No somatic complaints Objective Alert: Yes [place]: Person, Place, Date, Situation Mood: Calm Affect: Appropriate Memory Intact: Immediate, Recent Hallucinations: Other (she denies at the moment) Delusions: Yes Delusion Type: Paranoid Suicidal: Ideation (no SI) Homicidal: Ideation (no HI) Insight/Judgment Improved Labs Test 11/09/16 07:15 White Blood Count 10.0 TH/MM3 Red Blood Count 3.83 MIL/MM3 Hemoglobin 11.5 GM/DL Hematocrit 34.2 % Mean Corpuscular Volume 89.3 FL Mean Corpuscular Hemoglobin 30.1 PG Mean Corpuscular Hemoglobin Concent 33.7 % Red Cell Distribution Width 13.4 % Platelet Count 276 TH/MM3 Mean Platelet Volume 8.0 FL Neutrophils (%) (Auto) 51.5 % Lymphocytes (%) (Auto) 30.9 % Monocytes (%) (Auto) 8.6 % Eosinophils (%) (Auto) 8.4 % Basophils (%) (Auto) 0.6 % Neutrophils # (Auto) 5.1 TH/MM3 Lymphocytes # (Auto) 3.1 TH/MM3 Monocytes # (Auto) 0.9 TH/MM3 Eosinophils # (Auto) 0.8 TH/MM3 Basophils # (Auto) 0.1 TH/MM3 CBC Comment DIFF FINAL Differential Comment Blood Urea Nitrogen 5 MG/DL Creatinine 0.74 MG/DL Random Glucose 101 MG/DL Calcium Level 8.1 MG/DL Sodium Level 144 MEQ/L Potassium Level 3.3 MEQ/L Chloride Level 113 MEQ/L Carbon Dioxide Level 23.7 MEQ/L Anion Gap 7 MEQ/L Estimat Glomerular Filtration Rate 86 ML/MIN Date/Time Source Procedure Growth Status 11/08/16 08:30 Blood Peripheral Aerobic Blood Culture - Preliminary NO GROWTH IN 1 DAY Resulted 11/08/16 08:30 Blood Peripheral Anaerobic Blood Culture - Preliminary NO GROWTH IN 1 DAY Resulted Vitals/IOs Vital Signs Date Time Temp Pulse Resp B/P (MAP) Pulse Ox O2 Delivery O2 Flow Rate FiO2 11/09/16 10:11 94 21 11/09/16 08:00 96.7 75 17 123/66 (85) 11/08/16 09:05 Room Air Intake and Output 11/09/16 11/09/16 11/10/16 08:00 16:00 00:00 Intake Total 100 ml Output Total 1250 ml Balance -1150 ml Assessment & Plan Problem List: (1) Unspecified psychosis ICD Codes: F29 - Unspecified psychosis not due to a substance or known physiological condition Assessment & Plan: Patient seems to be doing better today, however, due to the level of psychosis displayed in the last days, unclear psychiatric history high risk to decompensate at a lower level of care, patient will be admitted in psychiatry. Continue Abilify 5 mg for psychosis. Assessment & Plan Estimated LOS: days Justification for Cont. Inpt. Transfer to psychiatry once medically appropriate. Manuel Reed MD Nov 09, 2016 12:07
[2016-11-10] MEDS ORDERED: ARIP1TAB11 PO (13:53)
[2016-11-10] MEDS ORDERED: CETI10 PO (13:53)
[2016-11-10] MEDS ORDERED: ATOR20TA15 PO (13:53)
== END 2016-11-09 13:40 | DRG 871 ==
LOC: NEPE 04:51 → NEDA 08:12 → N07A 11:43
PROVIDERS: ADMIT Internal Medicine; ATTEND Internal Medicine
DX: A41.9 Sepsis, unspecified organism (principal); J18.9 Pneumonia, unspecified organism; F23 Brief psychotic disorder; F31.9 Bipolar disorder, unspecified; F17.210 Nicotine dependence, cigarettes, uncomplicated; F12.90 Cannabis use, unspecified, uncomplicated; E87.6 Hypokalemia; Z62.810 Personal history of physical and sexual abuse in childhood
CPT/HCPCS: 70450; 71020; 76937; 80048; 80053; 80307; 81001; 83605; 85007; 85025; 85027; 87040; 93005; 94640; 96372; J1200; J1650; J2060; J2543; J3370; J3480; J7030; J7050

== ENCOUNTER 2016-11-09 14:30 | Inpatient (IN) | payer OTHER, MEDICAID, MEDICARE ==
[~2016-11-09] VITALS: Ht 162.6 cm; Wt 89.5 kg
[2016-11-09 13:55] VITALS: BP 138/88; PULSE 65; RESP 18; TEMP 96.9; O2SAT 97
[~2016-11-09 14:30] MED LIST changes: +ALBU0.08 NEB; -ALBU0.086 INH; -ALBU1.25 NEB; -ALBU17I INH; -ALBU8I INH; +ARIP1TAB11 PO; +ATOR20TA15 PO; +AUGM875T3 PO; -BUSP10TA8 PO; -DUONI NEB; +OMEP20TA PO; +ZOLO100T PO
[2016-11-09] MEDS ORDERED: CETIRIZINE HCL 10 MG TAB PO PRN (15:00)
[2016-11-09] MEDS: ARIPiprazole 5 MG TAB PO SCH (15:47)
[2016-11-09] MEDS: PANTOPRAZOLE SOD 20 MG DELAYED RELEASE TAB PO SCH (15:49)
[2016-11-09] MEDS: NICOTINE 21 MG/24 HR PATCH T-DERMAL SCH (15:51)
[2016-11-09] MEDS ORDERED: ACETAMINOPHEN 325 MG TAB PO PRN (16:00)
[2016-11-09 17:01] VITALS: BP 131/67; PULSE 75; RESP 16; TEMP 97.9; O2SAT 98
[2016-11-09] MEDS ORDERED: ALUMINUM/MAGNESIUM/SIMETH 30 ML CUP PO PRN (18:00)
[2016-11-09] MEDS ORDERED: ATORVASTATIN 20 MG TAB PO SCH (21:00)
[2016-11-09] MEDS ORDERED: REMOVE OLD NICODERM (NICOTINE) PATCH T-DERMAL SCH (21:00)
[2016-11-10 05:48] VITALS: BP 134/78; PULSE 78; RESP 16; TEMP 98
[2016-11-10 06:07] VITALS: BP 134/75; PULSE 78; RESP 16; TEMP 98; O2SAT 95
[2016-11-10] MEDS ORDERED: MAGNESIUM HYDROXIDE SUSP 30 ML CUP PO PRN (09:00)
[2016-11-10] MEDS: ARIPiprazole 5 MG TAB PO SCH (09:46)
[2016-11-10] MEDS: PANTOPRAZOLE SOD 20 MG DELAYED RELEASE TAB PO SCH (09:46)
[2016-11-10] MEDS: NICOTINE 21 MG/24 HR PATCH T-DERMAL SCH (09:47)
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
[2016-11-10] MEDS ORDERED: ATOR20TA15 PO (13:53)
[2016-11-10] MEDS ORDERED: CETI10 PO (13:53)
[2016-11-10] MEDS ORDERED: ARIP1TAB11 PO (13:53)
== END 2016-11-10 17:00 | disposition home or self-care (01) | DRG 885 ==
LOC: H260 14:30
PROVIDERS: ADMIT Psychiatry & Neurology Psychiatry; ATTEND Psychiatry & Neurology Psychiatry
DX: F29 Unspecified psychosis not due to a substance or known physiological condition (principal); F12.90 Cannabis use, unspecified, uncomplicated; J45.909 Unspecified asthma, uncomplicated; Z62.810 Personal history of physical and sexual abuse in childhood